=== PATIENT | female | born 1995 | race Caucasian/White ===

== ENCOUNTER 2017-01-23 02:52 | Inpatient (IN) ==
--- NOTE | 2017-01-23 04:13 | OB/GYN History & Physical ---
Date of Encounter: 01/23/17 Time of Encounter: 04:11 Assessment and Plan (1) 38 weeks gestation of Current visit: Yes Status: Acute 38 weeks 2 days continue FHR and toco - reactive NST category 1 with moderate variability, baseline 130s with 15x15 accels and no decels - external toco, contractions q3-5 minutes minimal cervical changes noted on recheck post 1hr, will have her ambulate and recheck History of Present Illness Chief complaint: Contractions, labor evaluation HPI: Ms. Davis is a 21 year old female 38 weeks 2 days presents for contractions. 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 Initially they were greater than 5 minutes apart and over the next hour became less than 5 minutes apart. Denies any vaginal bleeding, discharge, large gush of water or water breaking. Denies any fever, headache, visual changes, abdominal tenderness, or urinary complaints. She follows with OB Dr. Dee. Was seen and evaluated in the office yesterday for normal checkup. Cervix at that time 4 cm/90%. Fetus was positioned vertex. GPS negative, HBV nonreactive, Rubella immune, other serologies reviewed and are negative. Her blood type A positive. No complications to to date. She endorses good movement. Past Med Surg Social Fam HX - Past Medical History Medical history: no medical history Psychiatric history: no psych history - Past Surgical History Surgical History: no surgical history - Social History Smoking Status: Never smoker Smokeless Tobacco Status: No Alcohol use: none Drug use: none - Family History Mother Age: 50 Living Status: Still Living Hx Family Cardiac Disorders: No Hx Family Respiratory Disorders: No Hx Family Cancer: No Hx Family GI Disorders: No Hx Family Genitourinary Disorders: No Hx Family Endocrine Disorder: No Hx Family Musculoskeletal Disorders: No Hx Family Neuromuscular Disorders: No Hx Family Neurologic Disorders: No Hx Family HEENT Disorders: No Hx Family Autoimmune Disorders: No Hx Family Reproductive Disorders: No Hx Family Psychosocial Disorders: No Hx Family Medical Disorders: Yes (seizures in past) Obstetrical History - Pregnancies : 1 Para: 0 Term: 0 : 0 Ab's: 0 Livin Medications and Allergies Tablet 1 tab PO DAILY 01/23/17 [History] Allergies Penicillins Adverse Reaction (Verified 06/26/15 15:27) See Comments Review of System OB All systems PM: reviewed and no additional remarkable complaints except as stated Exam - Vital Signs Vital signs: Initial Vital Signs Temp Pulse Resp BP 97.9 F 98 14 137/70 01/23/17 02:59 01/23/17 02:59 01/23/17 02:59 01/23/17 02:59 - Constitutional Constitutional: well developed, well nourished, no acute distress, average body habitus - HEENT HEENT: EOMI, PERRL, Normocephaly, Mucus Membranes Moist - Neck Neck exam: full ROM, normal inspection, trachea midline - Lungs Respiratory exam: CTAB - Cardiovascular Cardiovascular exam: RRR, +S1, +S2 - Abdomen Abdomen: Present: bowel sounds normal, gravid, non tender - Extremities Extremities exam: full ROM, normal capillary refill, pedal edema (mild), radial pulses palpable and symetrical Deep Tendon Reflex Grade: 2+ Normal - Cervix Dilation: 5 (per RN) Effacement: 90 (per RN) - Uterus Uterus exam: Present: normal size, normal contour. Absent: tender Results All other labs normal. - VTE Reasons for not Prescribing Prophylaxis: Treatment not Indicated - Low risk for VTE
[2017-01-23 07:26] LABS: Bilirubin,Urine Negative (Negative); Blood,Urine Negative (Negative); Clarity,Urine Cloudy (Clear); Color,Urine Yellow (Yellow); Glucose,Urine (UA) Normal (Normal); Ketones,Urine Negative (Negative); Leukocyte Esterase,Urine Trace (Negative); Nitrite,Urine Negative (Negative); Protein,Urine Negative (Neg-Trace); Specific Gravity,Urine 1.017 (1.010-1.025); Urobilinogen,Urine Normal (Normal)
[2017-01-23 07:28] LABS: Hyaline Casts,Urine None Seen per lpf (None-Few); RBC,Urine 0-3 per hpf (0-3); WBC,Urine 0-3 per hpf (0-3)
[2017-01-23 07:43] LABS: Squamous Epithelial Cell,Urine Few per lpf (None-Few)
[2017-01-23 07:45] LABS: Bacteria,Urine Moderate per hpf (None-Few)
[2017-01-23] MEDS ORDERED: Famotidine 20 MG/2 ML VIAL IVP PRN (08:11)
[2017-01-23] MEDS ORDERED: Naloxone 0.4 MG/ML INJ IVP PRN (08:11)
[2017-01-23] MEDS ORDERED: Metoclopramide 10 MG/2 ML VIAL IVP PRN (08:11)
[2017-01-23] MEDS ORDERED: Ringers Solution, Lactated 1,000 ML IVC SCH (08:15)
[2017-01-23] MEDS ORDERED: EPHEDrine 50 MG/ML VIAL IVP PRN (08:29)
[2017-01-23] MEDS ORDERED: Ringers Solution, Lactated 500 ML IVC ONE (08:29)
[2017-01-23] MEDS ORDERED: Epidural Premix (fent/bupiv) 110 ML EP SCH (08:30)
--- NOTE | 2017-01-23 08:46 | OB/GYN Progress Note ---
Date of Encounter: 01/23/17 Time of Encounter: 08:44 Subjective - Subjective Interval history: Patient complains of 7 out of 10 pain. Contractions continued every 2-4 minutes. Cervix is now 5-6/90-1 membranes bulging . We will admit for labor management. Objective - Vital Signs Vital Signs: Vital Signs Temp Pulse Resp BP 01/23/17 02:59 97.9 F 98 14 137/70 Intake and Output 01/22/17 01/23/17 01/23/17 23:59 07:59 15:59 Other: Weight 88 kg Patient Weight 01/23/17 23:59 Weight 88 kg - Exam FHR: category 1 Auscultation: bilateral: normal Abdomen: Present: soft, gravid Cervical dilation: 5-6 Cervix effacement: 90 station: -1/ membranes bulging - Labs Labs: Abnormal lab results Urine Clarity Cloudy (Clear) A 01/23/17 07:15 Ur Leukocyte Esterase Trace (Negative) H 01/23/17 07:15 Urine Bacteria Moderate per hpf (None-Few) H 01/23/17 07:15
[2017-01-23 09:40] LABS: Basophils % 0.2 %; Hematocrit 30.9 % (35.3-44.9); Hemoglobin 10.2 g/dL (11.5-15.4); Immature Granulocytes % 0.3 % (0-4); Lymphocytes # 1.3 K/mcL (0.6-4.6); Lymphocytes % 11.3 %; Mean Corpuscular Volume 87.8 fL (83.0-100.0); Mean Platelet Volume 10.5 fL (9.4-12.4); Monocytes # 0.7 K/mcL (0.0-1.3); Monocytes % 5.9 %; Neutrophils # 9.7 K/mcL (1.6-8.9); Platelet Count 211 K/mcL (140-400); Red Blood Count 3.52 M/mcL (3.82-4.97); Red Cell Distribution Width 13.6 % (11.5-14.5); Segmented Neutrophils % 82.3 %
--- NOTE | 2017-01-23 13:12 | OB Labor Progress Note ---
Date of Encounter: 01/23/17 Time of Encounter: 13:12 Labor Progress Note - Subjective Subjective: Pt reports moderate discomfort with contractions at this time. - Cervix Cervix: 6/90/-1 - Heart Tones Heart Tones: Category I - [place]: 3-6 minutes - Interventions Interventions: AROM for moderate amount clear fluid. - Plan Plan: Continue to monitor. Epidural when requested. Anticipate .
[2017-01-23] MEDS ORDERED: Epidural Premix (fent/bupiv) 110 ML EP ONE (13:24)
--- NOTE | 2017-01-23 14:03 | Anesthesia Evaluation PreOp ---
Date of Encounter: 01/23/17 Time of Encounter: 14:02 - Past History Planned Operation: IBAN Cardiac History: Denies any Significant Hx Pulmonary History: Denies Any Significant HX TELEHEALTH CASE MANAGER History: Denies Any Significant HX Other Medical History: Denies Any Significant HX Anesthesia History: No Prior Anesthetic Complications : Yes Alcohol Use: none Drug use: none Medications and Allergies Tablet 1 tab PO DAILY 01/23/17 [History] Allergies Penicillins Adverse Reaction (Verified 06/26/15 15:27) See Comments - Meds/Allergy Pre-op Review Medications Reviewed: Yes Allergies Reviewed: Yes Beta Blockers on Current Med List: No Anesthesia Results - Labs 01/23/17 09:18 Anesthesia Exam Height: 5'2" Weight: 194# NPO (# of Hours): 4 Pain Scale: 9 Pain Scale Used: Numeric (1 - 10) - HEENT Pupil (Motor): Pupils equal Mallampati: II Teeth: Normal Oral Opening: Greater than 3 - TELEHEALTH CASE MANAGER LOC: Oriented TELEHEALTH CASE MANAGER Motor: Normal RUE, Normal LUE, Normal RLE, Normal LLE, Normal Face TELEHEALTH CASE MANAGER Sensory: Normal: RUE, LUE, RLE, LLE, Face - Cardiac Rhythm: Regular Murmur: None JVD: No Carotid Bruit: No - Pulmonary Breath Sounds: bilateral Clear Respiratory Effort: Symmetrical Anesthesia Assess/Plan ASA Score: 2 Modified [facility] Scale for Level of Consciousness: Cooperative, oriented, and tranquil Anesthetic Plan: General (plan b), Regional (plan a) Autologous Blood: Yes Monitoring Plan: Standard Monitors
--- NOTE | 2017-01-23 14:06 | Anesthesia Procedures ---
Date of Encounter: 01/23/17 Time of Encounter: 14:03 Procedures: Anesthesia - Epidural/Spinal Patient ID/Chart reviewed: Yes Patient examined: Yes OB Eval: Gestational age: 38.2 OB Eval: : 1 OB Eval: Hx Para: 0 OB Eval: Dilated at (cm): 6 OB Eval: Contractions: Non-stressed pattern Consent Obtained: Yes Supplemental Oxygen: None/Room Air Site Prep: Aseptic Technique, Sterile prep and drape, Povidone-Iodine 1% Patient position: upright Local Anesthetic: Lidocaine 1% Amount of Local Anesthetic used: 3 Touhy Needle Gauge: 18 Touhy Needle Depth (cm): 7 Catheter Depth at Skin (cm): 15 Test Dose (1.5% Lido + Epi): Volume given (mls): 5 Test Dose Result: Negative Loading Dose: Other: 4ml of epidural pharm bag premix solution Loading Dose Administered: Thru Catheter Infusion Med: 0.125% Bupivacaine w/ 2 mcg/ml Fentanyl Infusion Rate (mls/hr): 12 ([id number] pcea) Catheter Secured in Place: Tegaderm, Tape Interspace Used: L3-L4 Loss of Resistance (THELMA): Yes Blood: No CSF: No Paresthesia: No Procedure: pt tolerated procedure well. no complications. vss. fhr stable. 142/67 hr 97 test 138/72 hr 91 bolus 135/71 hr 113 pump start 127/60 hr 115
--- NOTE | 2017-01-23 15:33 | OB Labor Progress Note ---
Date of Encounter: 01/23/17 Time of Encounter: 15:30 Labor Progress Note - Subjective Subjective: Pt comfortable with epidural. - Cervix Cervix: 6/100/0 - Heart Tones Heart Tones: Category I - [place]: 2-6 minutes - Plan Plan: Continue to monitor. Augment with pitocin to make contractions more regular. Anticipate .
[2017-01-23] MEDS ORDERED: Oxytocin 20 units/ LR 1000 mL 20 UNIT/1,000 ML BAG IVC SCH ×2 (15:45→22:35)
--- NOTE | 2017-01-23 18:09 | OB Labor Progress Note ---
Date of Encounter: 01/23/17 Time of Encounter: 18:06 Labor Progress Note - Subjective Subjective: Pt reporting some rectal pressure. - Cervix Cervix: 9/100/1 - Heart Tones Heart Tones: Category I - [place]: 1.5-2.5 minutes - Interventions Interventions: Pt positioned on peanut ball - Plan Plan: Continue to monitor. Anticipate .
[2017-01-23] MEDS ORDERED: Benzocaine/Menthol 56 GM AEROSOL SPRAY TP PRN (22:14)
--- NOTE | 2017-01-23 22:20 | OB/GYN Procedure Note ---
Delivery - Delivery Date: 01/23/17 Provider: Nayeli Lira Intrapartum events: none Delivery induction: none Delivery augmentation: rupture of membranes, pitocin Delivery monitor: external FHT, internal uterine Anesthesia: epidural Estimated Blood Loss: 400 - Infant (s) A Infant Delivery Date: 01/23/17 Infant Delivery Time: 21:27 Presentation: vertex Position: CELSA Route of delivery: Gender: Female Viability: Viable Pounds: 7 Ounces: 11 Weight Gram: 3490 kg at 1 minute: 8 at 5 mins: 9 Shoulder Dystocia: not encountered Specimens collected: venous cord gases, arterial cord gases Placenta: spontaneous Cord: 3 umbilical vessels - Repair Episiotomy: none Laceration Description: Perineal - 1st Degree - Complications Delivery complications: uterine atony Delivery comments: Pt progressed well to for viable female weighing 7lbs 11oz with apgars 8 at one minute and 9 at five minutes. The cord was clamped and cut once pulsations ceased. The placenta delivered spontaneous and intact. Uterine atony noted following delivery of placenta and was managed with bimanual compression until good uterine tone was noted with pitocin infusing. A first degree perineal laceration was repaired using 3-0 Vicryl. EBL 400. developed some grunting respirations at 5 minutes of age and was taken to nursery for oxygen. Mother stable in DR and will be observed 2 hours before being taken to floor. - Disposition Mom disposition: stable in LDR disposition: taken to nursery
[2017-01-23] MEDS ORDERED: Acetaminophen 325 MG TABLET PO PRN (22:35)
[2017-01-23] MEDS ORDERED: Measles/Mumps/Rubella Vacc 0.5 ML VIAL SQ PRN (22:35)
[2017-01-23] MEDS: Ibuprofen 600 MG TABLET PO PRN (22:42)
[2017-01-24] MEDS: Prenatal Vit/FA 1 EACH TABLET PO SCH (10:11)
--- NOTE | 2017-01-24 10:30 | OB/GYN Progress Note ---
Date of Encounter: 01/24/17 Time of Encounter: 10:28 - Assessment and Plan (1) Vaginal delivery Current Visit: Yes Status: Acute Stable PP day 1, continue current management plan. Anticpate discharge tomorrow. Subjective - Subjective Interval history: Pt states feel well. Pain well managed on po pain medication. voiding without difficulty. Bottlefeeding. Patient reports: appetite normal, voiding normally, pain well controlled, ambulating normally Objective - Latest Vital Signs Latest vital signs: Vital Signs Temp Pulse Pulse Resp BP 01/24/17 07:30 98.1 F 80 16 130/80 01/24/17 02:53 98.2 F 88 88 14 117/66 01/24/17 01:50 98.2 F 88 88 14 117/66 01/24/17 00:45 98.4 F 101 101 14 109/70 Intake and Output 01/23/17 01/24/17 01/24/17 23:59 07:59 15:59 Intake Total 240 / 240 Output Total 700 / 700 Balance -700 / -700 240 / 240 Intake: Oral 240 / 240 Output: Urine 700 / 700 Other: Meal Breakfast Percent of Meal Consumed 90% Weight 84.2 kg Patient Weight 01/24/17 23:59 Weight 84.2 kg - Exam Lungs: bilateral: normal Extremities: Present: normal Abdomen: Present: normal appearance, soft Uterus: Present: normal Uterus Position: Midline
[2017-01-24] MEDS: Ibuprofen 600 MG TABLET PO PRN (15:36)
[2017-01-25] MEDS: Ibuprofen 600 MG TABLET PO PRN ×2 (03:42→09:27)
--- NOTE | 2017-01-25 07:35 | Discharge Summary ---
Date of Encounter: 01/25/17 Time of Encounter: 07:30 - Discharge Diagnosis (1) Vaginal delivery Priority: Primary Status: Acute Comments: Patient doing s/p vaginal delivery Denies pain States lochia is light States positive flatus; had a bm this am without difficulty and denies difficulty urinating Formula feeding. Discharge home today with baby - Discharge Medications Prescriptions: Ibuprofen [Motrin] 600 mg PO Q6HR PRN #60 tablet PRN Reason: Cramping Ferrous Sulfate 325 mg PO DAILY #60 tablet Home Medications: Tablet 1 tab PO DAILY 01/23/17 [History] Docusate [Colace] 100 mg PO BID capsule 01/25/17 [Rx] Ferrous Sulfate 325 mg PO DAILY #60 tablet 01/25/17 [Rx] Ibuprofen [Motrin] 600 mg PO Q6HR PRN #60 tablet 01/25/17 [Rx] Allergies/Adverse Reactions: Allergies Penicillins Adverse Reaction (Verified 06/26/15 15:27) See Comments Data Procedures and tests throughout hospitalization: Laboratory Tests 01/23/17 01/23/17 07:15 09:18 WBC 11.8 H RBC 3.52 L Hgb 10.2 L Hct 30.9 L MCV 87.8 MCH 29.0 MCHC 33.0 RDW 13.6 Plt Count 211 MPV 10.5 Immature Gran % 0.3 Seg Neutrophils % 82.3 Lymphocytes % 11.3 Monocytes % 5.9 Eosinophils % 0.0 Basophils % 0.2 Neutrophils # 9.7 H Lymphocytes # 1.3 Monocytes # 0.7 Eosinophils # 0.0 Basophils # 0.0 Urine Color Yellow Urine Clarity Cloudy A Urine pH 6.0 Ur Specific [place] 1.017 Urine Protein Negative Urine Glucose (UA) Normal Urine Ketones Negative Urine Blood Negative Urine Nitrite Negative Urine Bilirubin Negative Urine Urobilinogen Normal Ur Leukocyte Esterase Trace H Urine Microscopic RBC 0-3 Urine Microscopic WBC 0-3 Ur Squamous Epith Cells Few Urine Bacteria Moderate H Hyaline Casts None Seen Urine Yeast Test Not Performed Date of admission: 01/23/17 02:52 Primary care physician: Jacob Wray, Discharging clinician: Magdalena Sanchez - Patient Status Disposition: Home, Self-Care Condition: Good Functional capacity at discharge: independent ambulation Overall status at discharge: patient is back to baseline - Discharge Instructions Follow Up With: Jacob Wray DO [Primary Care Provider] - Rosa Dee DO [Partnered Physician] - (February 24, 2017 @ 1:30 pm) - Diet and Activity Activity: increase activity as tolerated Diet: regular diet Hospital Course Reason for admission: active labor, IUP at term Delivery: Episiotomy: none Laceration: 1st degree Other procedures: none complications: none Discharge diagnosis: IUP at term delivered baby: female Time Attestation: Total time spent providing and/or coordinating discharge services: Time Spent: Less than 30 minutes Exam - Constitutional Vitals: Temp Pulse Resp BP Pulse Ox 98.4 F 86 18 117/72 98 01/24/17 20:48 01/24/17 20:48 01/24/17 20:48 01/24/17 20:48 01/24/17 20:48 General appearance IM: cooperative, A&O X 3, pleasant - Respiratory Respiratory exam: Present: CTAB - Cardiovascular Cardiovascular exam IM: Present: RRR, +S1, +S2 - GI/Abdominal GI/Abdominal exam IM: normal bowel sounds, soft - Rectal Rectal exam: deferred - Uterine Tone: Firm Uterus Position: 1 Finger Below Umbilicus, Midline - Extremities Exam Extremities exam IM: Present: normal capillary refill, pedal edema (1+), radial pulses palpable and symetrical - Neurological Exam Neurological exam: alert, oriented X3, reflexes normal, no focal deficits
[2017-01-25] MEDS: Prenatal Vit/FA 1 EACH TABLET PO SCH (07:51)
[2017-01-25 08:19] VITALS: BP 119/72
== END 2017-01-25 11:27 | disposition home or self-care (01) | DRG 775 ==
LOC: 1NENULAB → OBSVTOIN 02:52 → 1NENUOBS 01-24 01:28
PROVIDERS: ADMIT Obstetrics & Gynecology; ATTEND Obstetrics & Gynecology

== ENCOUNTER 2017-01-27 22:27 | Observation (INO) ==
[2017-01-27 23:14] LABS: Basophils % 0.2 %; Eosinophils # 0.1 K/mcL (0.0-0.6); Hematocrit 24.6 % (35.3-44.9); Immature Granulocytes % 1.7 % (0-4); Lymphocytes # 1.3 K/mcL (0.6-4.6); Lymphocytes % 9.9 %; Mean Corpuscular HGB Conc 32.1 g/dL (31.6-35.5); Mean Corpuscular Hemoglobin 29.6 pg (28.0-33.3); Mean Corpuscular Volume 92.1 fL (83.0-100.0); Monocytes # 0.6 K/mcL (0.0-1.3); Monocytes % 5.1 %; Neutrophils # 10.4 K/mcL (1.6-8.9); Nucleated Red Blood Cells 0.4 /100 WBC (0); Platelet Count 251 K/mcL (140-400); Red Blood Count 2.67 M/mcL (3.82-4.97); Red Cell Distribution Width 14.5 % (11.5-14.5); Segmented Neutrophils % 82.1 %
[2017-01-27 23:21] LABS: INR 1.1; Prothrombin Time 11.4 Seconds (9.4-12.1)
[2017-01-27 23:24] LABS: Activated Partial Thrombo Time 23.9 Seconds (26.0-36.0)
[2017-01-27 23:25] LABS: Hemoglobin 7.9 g/dL (11.5-15.4)
[2017-01-27 23:28] LABS: BUN/Creatinine Ratio 20 (6-26); Blood Urea Nitrogen 14 mg/dL (7-20); Calcium 8.7 mg/dL (8.6-10.8); Carbon Dioxide 22 mEq/L (19-29); Chloride 109 mEq/L (98-109); Glucose 89 mg/dL (70-99); Osmolality,Calculated 288 (280-300); Potassium 3.7 mEq/L (3.5-4.5); Sodium 139 mEq/L (136-145); eGFR For African Americans > 60 (> 60); eGFR For Non-African Americans > 60 (> 60)
--- NOTE | 2017-01-28 00:46 | Emergency Department Note ---
Disposition Clinical Impression: Elevated blood pressure reading Pneumonia Qualifiers: Pneumonia type: due to unspecified organism Laterality: unspecified laterality Lung location: unspecified part of lung Qualified Code(s): J18.9 - Pneumonia, unspecified organism Chest pain Qualifiers: Chest pain type: unspecified Qualified Code(s): R07.9 - Chest pain, unspecified Disposition: Admitted As Inpatient Condition: Fair General Adult HPI - General Chief complaint: ED Chest Pain Stated complaint: CASI,Cp Time Seen by Provider: 01/28/17 00:32 Source: patient Mode of arrival: ambulatory Limitations: no limitations Nursing Notes Reviewed: Yes Vital Signs Reviewed: Yes - History of Present Illness HPI Narrative: 21-year-old female presents for evaluation for chest pain 4 days from a spontaneous vaginal delivery. Patient denies any, occasions with delivery. Patient denies any, dictation term . Patient has no history of hypertension or diabetes. Patient has no seizure disorder. Patient states that her chest pain started 2 days ago. Notes to be worse with exertion. Patient's pain is in the mid upper chest without radiation. Denies history of prior pain. Reports short of breath related the pain. Patient is getting formula feeding. No headache. No nausea or vomiting. No blurry vision or change in vision. No history of seizures. Pain Scale: 6 - Related Data Home Medications Medication Instructions Recorded Confirmed Tablet 1 tab PO DAILY 01/23/17 01/23/17 Previous Rx's Medication Instructions Recorded Docusate [Colace] 100 mg PO BID capsule 01/25/17 Ferrous Sulfate 325 mg PO DAILY #60 tablet 01/25/17 Ibuprofen [Motrin] 600 mg PO Q6HR PRN #60 tablet 01/25/17 Allergies Allergy/AdvReac Type Severity Reaction Status Date / Time Penicillins AdvReac See Verified 06/26/15 15:27 Comments All systems ED: reviewed and negative except as stated. Constitutional: Reports: as per HPI. Denies: fever Eyes: Reports: as per HPI ENT ED: Reports: as per HPI Cardiovascular: Reports: as per HPI, chest pain Respiratory: Reports: as per HPI, dyspnea Gastrointestinal: Reports: as per HPI. Denies: abdominal pain, nausea, vomiting Genitourinary: Reports: as per HPI Musculoskeletal: Reports: as per HPI Integumentary: Reports: as per HPI Neurological: Reports: as per HPI. Denies: headache, weakness, numbness Psychiatric: Reports: as per HPI Endocrine: Reports: as per HPI Past Medical History - Past Medical History Medical history: Reports: no medical history Surgical history: Reports: no surgical history Psychiatric history: Reports: no psych history LUNCHROOM SUPERVISOR history: Reports: no LUNCHROOM SUPERVISOR history - Social History Smoking Status: Never smoker Smokeless Tobacco Status: No Alcohol use: Reports: none Drug use: Reports: none Physical Exam - General Limitations: no limitations General appearance: alert, in no apparent distress - Head Head exam: atraumatic, normocephalic, normal inspection - Eye Eye exam: Present: normal appearance, PERRL, EOMI - ENT ENT exam: normal exam, normal oropharynx, mucous membranes moist - Neck Neck exam: Present: normal inspection, trachea midline - Chest Chest inspection: Present: normal inspection, symmetric chest wall rise - Respiratory Respiratory exam: Present: normal lung sounds bilaterally. Absent: respiratory distress - Cardiovascular Cardiovascular exam: Present: regular rate, normal rhythm - Abdominal Exam Abdominal exam: Present: soft, Non-Tender - Extremities Exam Extremities exam: Present: normal inspection, full ROM, pedal edema (2+). Absent: tenderness - Expanded Lower Extremity Exam Neurovascular/Tendon exam: Present: normal capillary refill - Back Exam Back exam: Present: normal inspection. Absent: CVA tenderness (R), CVA tenderness (L) - Neurological Exam Neurological exam: Present: alert, oriented X3 - Expanded Neurological Exam Patient oriented to: Present: person, place, time Speech: Present: fluid speech Cranial nerves: EOM function (II, III, IV, ): Normal, facial sensation (V): Normal, facial palsy (VII): Normal, spinal accessory function (XI): Normal, tongue deviation (XII): Normal Motor strength - LUE: 5/5 Motor strength - RUE: 5/5 Motor strength - LLE: 5/5 Motor strength - RLE: 5/5 DTR: patellar (L): 2+, patellar (R): 2+ - Skin Skin exam: Present: warm, dry, intact, normal color, rash (faint erythematous rash over the upper chest and back) Course Course Narrative: Patient seen and examined. The patient's a 21-year-old female who is day for with chief complaint of chest pain. Patient has noted to be hypertensive at triage which slightly reduction in her blood pressure during her stay. Discussed this with the on-call business services director who recommended that if her labs are unremarkable in her systolic blood pressures less than 160 she can follow-up in the office. There are concerns for pulmonary embolism, cardiomyopathy, as part of her chest pain. Patient is getting basic lab work, EKG, urine and reevaluation. - Reevaluation(s) Reevaluation #1: Patient seen and examined. Patient's resting comfortably. Patient does have multifocal pneumonia as evidenced by a CT with a parapneumonic effusion. Discussed with the patient will need to be admitted for IV antibiotics and monitoring. She is agreeable to plan of care. Time: 02:17 - Consultations Consultation #1: Spoke with Dr. Feliz who recommends that if the patient's SBP <160 with unremarkable labs, the patient may follow up in the office for re-evaluation. Time: 00:57 Vital Signs Temperature 98.7 F 01/27/17 22:28 Pulse Rate 94 01/27/17 22:28 Respiratory Rate 18 01/27/17 22:28 Blood Pressure 161/93 01/27/17 22:28 O2 Sat by Pulse Oximetry 98 01/27/17 22:28 Temperature 98.7 F 01/28/17 03:30 Pulse Rate 88 01/28/17 03:30 Respiratory Rate 16 01/28/17 03:30 Blood Pressure 129/78 01/28/17 03:30 O2 Sat by Pulse Oximetry 94 01/28/17 03:30 Oxygen Delivery Oxygen Delivery Room Air Medical Decision Making - MDM Narrative Medical decision making narrative: 21-year-old female present for evaluation of dyspnea as well as chest pain. Dyspnea started 2 days ago associated with the chest pain. There is to be worse with exertion. No history of prior. Patient is 4 days from a unremarkable spontaneous vaginal delivery. Patient states that she has also been having a slight productive cough. No notable fevers. No nausea or vomiting. No belly pain. At triage the patient's blood pressure was noted be elevated. Patient also had bilateral pitting edema. Concerns for preeclampsia initially and spoke with the on-call LUNCHROOM SUPERVISOR who recommended that as long as the blood pressure systolic was less than 160 the patient would be able to follow- up in clinic for reevaluation if the lab work was unremarkable. The patient had a CTA of the chest performed which shows multifocal pneumonia with a parapneumonic effusion likely etiology of the patient's dyspnea and chest pain. Also concern at this point for peripartum cardiomyopathy. This information was discussed with the patient at bedside. Recommend IV antibiotics admission and likely formal cardiac echo. Patient is agreeable to plan of care. - Lab Data Lab results reviewed: Yes I reviewed the patient's lab results. Result diagrams: 01/27/17 23:07 01/27/17 23:07 Lab Results 01/27/17 01/27/17 01/27/17 Range/Units 23:07 23:07 23:07 WBC 12.7 H (4.3-11.1) K/mcL RBC 2.67 L (3.82-4.97) M/mcL Hgb 7.9 L D (11.5-15.4) g/dL Hct 24.6 L (35.3-44.9) % MCV 92.1 (83.0-100.0) fL MCH 29.6 (28.0-33.3) pg MCHC 32.1 (31.6-35.5) g/dL RDW 14.5 (11.5-14.5) % Plt Count 251 (140-400) K/mcL MPV 10.0 (9.4-12.4) fL Immature Gran % 1.7 (0-4) % Seg Neutrophils % 82.1 % Lymphocytes % 9.9 % Monocytes % 5.1 % Eosinophils % 1.0 % Basophils % 0.2 % Neutrophils # 10.4 H (1.6-8.9) K/mcL Lymphocytes # 1.3 (0.6-4.6) K/mcL Monocytes # 0.6 (0.0-1.3) K/mcL Eosinophils # 0.1 (0.0-0.6) K/mcL Basophils # 0.0 (0.0-0.2) K/mcL Nucleated RBCs/100 WBC 0.4 H (0) /100 WBC PT 11.4 (9.4-12.1) Seconds INR 1.1 APTT 23.9 L (26.0-36.0) Seconds Sodium 139 (136-145) mEq/L Potassium 3.7 (3.5-4.5) mEq/L Chloride 109 (98-109) mEq/L Carbon Dioxide 22 (19-29) mEq/L BUN 14 (7-20) mg/dL Creatinine 0.69 (0.57-1.11) mg/dL Est GFR ( Amer) > 60 (> 60) Est GFR (Non-Af Amer) > 60 (> 60) BUN/Creatinine Ratio 20 (6-26) Glucose 89 (70-99) mg/dL Calculated Osmolality 288 (280-300) Uric Acid (2.6-6.0) mg/dL Calcium 8.7 (8.6-10.8) mg/dL Magnesium (1.6-2.6) mg/dL Total Bilirubin (0.2-1.2) mg/dL Direct Bilirubin (0.0-0.5) mg/dL Indirect Bilirubin (0.0-1.2) mg/dL AST (5-34) Units/L ALT (0-55) Units/L Alkaline Phosphatase (38-126) Units/L Lactate Dehydrogenase (159-327) Units/L Troponin I (0-0.03) ng/mL B-Natriuretic Peptide (0-100) pg/mL Serum Total Protein (6.0-8.3) g/dL Albumin (3.5-5.0) g/dL Globulin (2.4-3.5) g/dL Albumin/Globulin Ratio (1.1-2.2) Urine Color (Yellow) Urine Clarity (Clear) Urine pH (5.0-8.0) pH Units Ur Specific [place] (1.010-1.025) Urine Protein (Neg-Trace) mg/dL Urine Glucose (UA) (Normal) mg/dL Urine Ketones (Negative) mg/dL Urine Blood (Negative) Urine Nitrite (Negative) Urine Bilirubin (Negative) Urine Urobilinogen (Normal) mg/dL Ur Leukocyte Esterase (Negative) Urine Microscopic RBC (0-3) per hpf Urine Microscopic WBC (0-3) per hpf Ur Squamous Epith Cells (None-Few) per lpf Urine Bacteria (None-Few) per hpf Hyaline Casts (None-Few) per lpf Ur Culture Indicated? (NO) 01/27/17 01/27/17 01/28/17 Range/Units 23:07 23:07 01:10 WBC (4.3-11.1) K/mcL RBC (3.82-4.97) M/mcL Hgb (11.5-15.4) g/dL Hct (35.3-44.9) % MCV (83.0-100.0) fL MCH (28.0-33.3) pg MCHC (31.6-35.5) g/dL RDW (11.5-14.5) % Plt Count (140-400) K/mcL MPV (9.4-12.4) fL Immature Gran % (0-4) % Seg Neutrophils % % Lymphocytes % % Monocytes % % Eosinophils % % Basophils % % Neutrophils # (1.6-8.9) K/mcL Lymphocytes # (0.6-4.6) K/mcL Monocytes # (0.0-1.3) K/mcL Eosinophils # (0.0-0.6) K/mcL Basophils # (0.0-0.2) K/mcL Nucleated RBCs/100 WBC (0) /100 WBC PT (9.4-12.1) Seconds INR APTT (26.0-36.0) Seconds Sodium (136-145) mEq/L Potassium (3.5-4.5) mEq/L Chloride (98-109) mEq/L Carbon Dioxide (19-29) mEq/L BUN (7-20) mg/dL Creatinine (0.57-1.11) mg/dL Est GFR ( Amer) (> 60) Est GFR (Non-Af Amer) (> 60) BUN/Creatinine Ratio (6-26) Glucose (70-99) mg/dL Calculated Osmolality (280-300) Uric Acid 5.3 (2.6-6.0) mg/dL Calcium (8.6-10.8) mg/dL Magnesium 1.8 (1.6-2.6) mg/dL Total Bilirubin 0.4 (0.2-1.2) mg/dL Direct Bilirubin 0.1 (0.0-0.5) mg/dL Indirect Bilirubin 0.3 (0.0-1.2) mg/dL AST 44 H (5-34) Units/L ALT 45 (0-55) Units/L Alkaline Phosphatase 178 H (38-126) Units/L Lactate Dehydrogenase 342 H (159-327) Units/L Troponin I 0.00 (0-0.03) ng/mL B-Natriuretic Peptide 156 H (0-100) pg/mL Serum Total Protein 6.0 (6.0-8.3) g/dL Albumin 2.5 L (3.5-5.0) g/dL Globulin 3.5 (2.4-3.5) g/dL Albumin/Globulin Ratio 0.7 L (1.1-2.2) Urine Color (Yellow) Urine Clarity (Clear) Urine pH (5.0-8.0) pH Units Ur Specific [place] (1.010-1.025) Urine Protein (Neg-Trace) mg/dL Urine Glucose (UA) (Normal) mg/dL Urine Ketones (Negative) mg/dL Urine Blood (Negative) Urine Nitrite (Negative) Urine Bilirubin (Negative) Urine Urobilinogen (Normal) mg/dL Ur Leukocyte Esterase (Negative) Urine Microscopic RBC (0-3) per hpf Urine Microscopic WBC (0-3) per hpf Ur Squamous Epith Cells (None-Few) per lpf Urine Bacteria (None-Few) per hpf Hyaline Casts (None-Few) per lpf Ur Culture Indicated? (NO) 01/28/17 Range/Units 02:26 WBC (4.3-11.1) K/mcL RBC (3.82-4.97) M/mcL Hgb (11.5-15.4) g/dL Hct (35.3-44.9) % MCV (83.0-100.0) fL MCH (28.0-33.3) pg MCHC (31.6-35.5) g/dL RDW (11.5-14.5) % Plt Count (140-400) K/mcL MPV (9.4-12.4) fL Immature Gran % (0-4) % Seg Neutrophils % % Lymphocytes % % Monocytes % % Eosinophils % % Basophils % % Neutrophils # (1.6-8.9) K/mcL Lymphocytes # (0.6-4.6) K/mcL Monocytes # (0.0-1.3) K/mcL Eosinophils # (0.0-0.6) K/mcL Basophils # (0.0-0.2) K/mcL Nucleated RBCs/100 WBC (0) /100 WBC PT (9.4-12.1) Seconds INR APTT (26.0-36.0) Seconds Sodium (136-145) mEq/L Potassium (3.5-4.5) mEq/L Chloride (98-109) mEq/L Carbon Dioxide (19-29) mEq/L BUN (7-20) mg/dL Creatinine (0.57-1.11) mg/dL Est GFR ( Amer) (> 60) Est GFR (Non-Af Amer) (> 60) BUN/Creatinine Ratio (6-26) Glucose (70-99) mg/dL Calculated Osmolality (280-300) Uric Acid (2.6-6.0) mg/dL Calcium (8.6-10.8) mg/dL Magnesium (1.6-2.6) mg/dL Total Bilirubin (0.2-1.2) mg/dL Direct Bilirubin (0.0-0.5) mg/dL Indirect Bilirubin (0.0-1.2) mg/dL AST (5-34) Units/L ALT (0-55) Units/L Alkaline Phosphatase (38-126) Units/L Lactate Dehydrogenase (159-327) Units/L Troponin I (0-0.03) ng/mL B-Natriuretic Peptide (0-100) pg/mL Serum Total Protein (6.0-8.3) g/dL Albumin (3.5-5.0) g/dL Globulin (2.4-3.5) g/dL Albumin/Globulin Ratio (1.1-2.2) Urine Color Yellow (Yellow) Urine Clarity Cloudy A (Clear) Urine pH 7.5 (5.0-8.0) pH Units Ur Specific [place] > 1.030 H (1.010-1.025) Urine Protein 30 H (Neg-Trace) mg/dL Urine Glucose (UA) Normal (Normal) mg/dL Urine Ketones Negative (Negative) mg/dL Urine Blood Large H (Negative) Urine Nitrite Negative (Negative) Urine Bilirubin Negative (Negative) Urine Urobilinogen Normal (Normal) mg/dL Ur Leukocyte Esterase Large H (Negative) Urine Microscopic RBC TNTC H (0-3) per hpf Urine Microscopic WBC TNTC H (0-3) per hpf Ur Squamous Epith Cells Few (None-Few) per lpf Urine Bacteria None Seen (None-Few) per hpf Hyaline Casts None Seen (None-Few) per lpf Ur Culture Indicated? YES A (NO) - Radiology Data Radiology results reviewed: Yes I reviewed the patient's radiology results. Chest X-Ray 01/27/17 22:30 IMPRESSION: Patchy and hazy bibasilar opacities, right greater than left. While these findings may in part reflect atelectasis/bronchovascular crowding, possible infectious infiltrates could also be considered in the correct clinical setting. D/ / Bunny Krause MD / Bunny Krause MD Interpreting Provider: Bunny Krause MD Chest CTA 01/28/17 01:01 IMPRESSION: No evidence of a pulmonary embolus. Bilateral patchy and somewhat nodular airspace disease most consistent with multifocal pneumonia. There are small bilateral parapneumonic pleural effusions with the left pleural fluid partially loculated in a subpulmonic position. D/ / Stone Prasad MD / Stone Prasad MD Interpreting Provider: Stone Prasad MD - EKG Data EKG #1 EKG attestation: Yes I reviewed and interpreted this EKG. EKG shows normal: sinus rhythm Rate: normal Rhythm: NSR [place]/QRS: normal T wave inversions noted in: v1 Interpretation: no acute changes, normal EKG Attestation Statement - Attestation Attestation: I, Ki Moran, examined this patient and my medical decision-making was reviewed with the [employer] P[employer]/PA/Advanced Practice Nurse/Resident Physician. I agree with the documented findings, disposition and treatment plan as described except to the extent set forth below. 21-year-old female presents with chest pain, shortness of breath, elevated blood pressure. Patient is 4 days . Patient is not breast-feeding. Patient had a vaginal without complication other than first-degree perineal tear which did not reveal significant repair. Initial blood pressures in the emergency department had greater than 160 systolic. After evaluation and observation emergency Department the BP did improve to 141 systolic. CTA of the chest was ordered to rule out PE due to patient's hypercoagulable state. CT shows multifocal pneumonia and patient will be admitted to the hospital after treatment with IV antibiotics of ceftriaxone and azithromycin. Patient does not qualify for healthcare associated pneumonia as she spent less than 48 hours in the hospital. Patient felt comfortable with the plan for admission to the hospital.
[2017-01-28] MEDS ORDERED: Ketorolac 15 MG/ML VIAL IVP ONE (01:10)
[2017-01-28 01:38] LABS: Albumin 2.5 g/dL (3.5-5.0); Albumin/Globulin Ratio 0.7 (1.1-2.2); Bilirubin,Direct 0.1 mg/dL (0.0-0.5); Bilirubin,Indirect 0.3 mg/dL (0.0-1.2); Bilirubin,Total 0.4 mg/dL (0.2-1.2); Globulin 3.5 g/dL (2.4-3.5); Magnesium 1.8 mg/dL (1.6-2.6); Uric Acid 5.3 mg/dL (2.6-6.0)
[2017-01-28] MEDS ORDERED: Azithromycin 500 MG in D5% in Water 250 ML IVPB ONE (02:16)
[2017-01-28 02:37] LABS: Bilirubin,Urine Negative (Negative); Blood,Urine Large (Negative); Clarity,Urine Cloudy (Clear); Color,Urine Yellow (Yellow); Glucose,Urine (UA) Normal (Normal); Ketones,Urine Negative (Negative); Leukocyte Esterase,Urine Large (Negative); Nitrite,Urine Negative (Negative); PH,Urine 7.5 pH Units (5.0-8.0); Protein,Urine 30 mg/dL (Neg-Trace); Specific Gravity,Urine > 1.030 (1.010-1.025); Urobilinogen,Urine Normal (Normal)
[2017-01-28 02:39] LABS: Bacteria,Urine None Seen per hpf (None-Few); Hyaline Casts,Urine None Seen per lpf (None-Few); RBC,Urine TNTC per hpf (0-3); Squamous Epithelial Cell,Urine Few per lpf (None-Few); WBC,Urine TNTC per hpf (0-3)
[2017-01-28] MEDS ORDERED: Levofloxacin 750 MG/150 ML 750 MG/150 ML BAG IVPB ONE (02:44)
[2017-01-28] MEDS ORDERED: Ondansetron 4 MG/2 ML VIAL IVP PRN (04:06)
[2017-01-28] MEDS ORDERED: Acetaminophen 325 MG TABLET PO PRN (04:06)
--- NOTE | 2017-01-28 04:06 | Internal Med History&Physical ---
<Da Harris - Last Filed: 01/28/17 04:44> Date of Encounter: 01/28/17 Time of Encounter: 03:00 Assessment and Plan (1) Pneumonia Current visit: Yes Status: Acute - CTA chest found no evidence of PE but multifocal pneumonia affecting bilateral lung bases. - Pending blood cultures. - Will obtain sputum culture with gram stain. - Also check respiratory infection panel and urine antigens for Legionella and S. pneumoniae. - Continue levofloxacin. - Closely monitor. Qualifiers: Pneumonia type: due to unspecified organism Laterality: bilateral Lung location: lower lobe of lung Qualified Code(s): J18.9 - Pneumonia, unspecified organism (2) Anemia Current visit: Yes Status: Acute - Hgb 7.9, which is a drop from 10.2 on 01/23. - Likely secondary to vaginal bleeding, which per patient it's improving. - May partially contribute to patient's current shortness of breath. - Continue iron supplement. - Continue to monitor. Qualifiers: Anemia type: unspecified type Qualified Code(s): D64.9 - Anemia, unspecified (3) Chest pain Current visit: Yes Status: Acute - Pleuritic chest pain on deep breath or cough. - Doubt cardiac cause given no significant ischemic change on EKG and negative troponin. - Pain control with prn Tylenol. Qualifiers: Chest pain type: chest pain on breathing Qualified Code(s): R07.1 - Chest pain on breathing (4) Status post vaginal delivery Current visit: Yes Status: Acute - Status post vaginal delivery on 01/23/17. - Patient reports decreasing vaginal bleeding. - Currently bottle feeding. (5) DVT prophylaxis Current visit: Yes Status: Acute - Calf pump for mechanical DVT prophylaxis. Internal Medicine - H&P: HPI Chief complaint: Shortness of breath and cough Admitted From: Emergency Dept Plans for Post Hospital Care: Home History of present illness: Ms. Davis is a 21 year old female without significant PMH who just had a vaginal delivery on 01/23/17. Patient presented to [facility] ED with complaints of worsening shortness of breath and cough starting 01/26 evening. Patient reports that shortness of breath is getting so bad that she can barely walk due to the exertional dyspnea. Patient reports occasional sputum production. Patient also has sternal chest pain aggravated by cough or deep breath. Patient denies fever , chills, nausea, vomiting, diarrhea, abdominal pain, dysuria, skin rash/ itchiness. Patient still sees blood in the urine and reports the vaginal bleeding is decreasing over time. Patient reports no known complication throughout . Patient is currently bottle-feeding her baby. Patient is full code. Past Med Surg Social Fam HX - Past Medical History Medical history: no medical history Psychiatric history: no psych history - Past Surgical History Surgical History: no surgical history, non-contributory - Social History Smoking Status: Never smoker Smokeless Tobacco Status: No Alcohol use: none Drug use: none - Family History Mother Living Status: Still Living Hx Family Cardiac Disorders: No Hx Family Respiratory Disorders: No Hx Family Cancer: No Hx Family GI Disorders: No Hx Family Endocrine Disorder: No Hx Family Neuromuscular Disorders: No Hx Family Neurologic Disorders: No Hx Family HEENT Disorders: No Hx Family Autoimmune Disorders: No Father Living Status: Still Living Hx Family Endocrine Disorder: Yes (DM2) Internal Medicine - H&P: Meds Tablet 1 tab PO DAILY 01/23/17 [History] Docusate [Colace] 100 mg PO BID capsule 01/25/17 [Rx] Ferrous Sulfate 325 mg PO DAILY #60 tablet 01/25/17 [Rx] Ibuprofen [Motrin] 600 mg PO Q6HR PRN #60 tablet 01/25/17 [Rx] Allergies Penicillins Adverse Reaction (Verified 06/26/15 15:27) See Comments All Systems PM: A 10-system review of systems was performed and is negative for pertinent findings except as documented above in the HPI. - Constitutional Constitutional: no anorexia, no chills, no fever(s) - EENT Eyes: no change in vision Ears: no decreased hearing Nose, mouth and throat: no dysphagia, no odynophagia - Cardiovascular Cardiovascular ROS IM: edema (BLE edema about the same as during .), palpitations, no diaphoresis, no lightheadedness, no syncope - Respiratory Respiratory: cough (With occasional clear sputum production.), dyspnea, pain on inspiration, pain with cough, no hemoptysis - Gastrointestinal Gastrointestinal: no abdominal pain, no diarrhea, no hematochezia, no melena, no nausea, no vomiting - Genitourinary Genitourinary: hematuria, no difficulty urinating, no dysuria - Musculoskeletal Musculoskeletal ROS IM: no arthralgias, no myalgias - Integumentary Integumentary IM: no pruritus, no rash - Neurological Neurological ROS: no focal weakness, no numbness, no tingling - Hematologic/Lymphatic Hematologic/Lymphatic: no easy bleeding, no easy bruising - Constitutional Vitals: Temp Pulse Resp BP Pulse Ox 98.7 F 88 16 129/78 94 01/28/17 03:30 01/28/17 03:30 01/28/17 03:30 01/28/17 03:30 01/28/17 03:30 General appearance: Present: cooperative, A&O X 3, no acute distress, answers questions appropriately - Head Head exam: Present: atraumatic, normocephalic - Eye Eye exam: Present: EOMI, PERRL, conjuntiva pink, sclera anicteric - Neck Neck exam general surgery: Present: supple, trachea midline. Absent: lymphadenopathy - Respiratory Respiratory exam: Present: CTAB. Absent: accessory muscle use, rales, rhonchi, wheezes - Cardiovascular Cardiovascular exam: Present: +S1, +S2, tachycardia. Absent: diastolic murmur, gallop, rubs, systolic murmur - GI/Abdominal GI/Abdominal exam: Present: normal bowel sounds, soft, no peritoneal signs. Absent: distended, tenderness - Extremities Exam Extremities exam: Present: warm, radial pulses palpable and symetrical. Absent : calf tenderness, cyanotic, pedal edema - Neurological Exam Neurological exam: Present: CN II-XII intact, oriented X3, no focal deficits. Absent: pronater drift, facial droop, speech deficit - Skin Skin exam: Present: dry, intact, warm Internal Med - H&P Results - Labs CBC & Chem 7: 01/27/17 23:07 01/27/17 23:07 Labs: Short CBC 01/27/17 Range/Units 23:07 WBC 12.7 H (4.3-11.1) K/mcL Hgb 7.9 L D (11.5-15.4) g/dL Hct 24.6 L (35.3-44.9) % Plt Count 251 (140-400) K/mcL Neutrophils # 10.4 H (1.6-8.9) K/mcL BMP 01/27/17 Range/Units 23:07 Sodium 139 (136-145) mEq/L Potassium 3.7 (3.5-4.5) mEq/L Chloride 109 (98-109) mEq/L Carbon Dioxide 22 (19-29) mEq/L BUN 14 (7-20) mg/dL Creatinine 0.69 (0.57-1.11) mg/dL Glucose 89 (70-99) mg/dL Calcium 8.7 (8.6-10.8) mg/dL Cardiac Enzymes 01/27/17 Range/Units 23:07 Troponin I 0.00 (0-0.03) ng/mL Liver Function 01/28/17 Range/Units 01:10 Total Bilirubin 0.4 (0.2-1.2) mg/dL Direct Bilirubin 0.1 (0.0-0.5) mg/dL AST 44 H (5-34) Units/L ALT 45 (0-55) Units/L Alkaline Phosphatase 178 H (38-126) Units/L Albumin 2.5 L (3.5-5.0) g/dL Urine 01/28/17 Range/Units 02:26 Urine Color Yellow (Yellow) Urine Clarity Cloudy A (Clear) Urine pH 7.5 (5.0-8.0) pH Units Ur Specific [place] > 1.030 H (1.010-1.025) Urine Protein 30 H (Neg-Trace) mg/dL Urine Glucose (UA) Normal (Normal) mg/dL - EKG Data -: EKG Interpreted by Myself EKG shows normal: sinus rhythm Rate: normal - EKG Data Prior EKG available for review: no EKG comments: 01/28/17 04:28 HR 88, DE 160, QRS 74, sinus rhythm, no significant ischemic change. - Impressions Impressions Chest X-Ray 01/27/17 22:30 IMPRESSION: Patchy and hazy bibasilar opacities, right greater than left. While these findings may in part reflect atelectasis/bronchovascular crowding, possible infectious infiltrates could also be considered in the correct clinical setting. D/ / Bunny Krause MD / Bunny Krause MD Interpreting Provider: Bunny Krause MD Chest CTA 01/28/17 01:01 IMPRESSION: No evidence of a pulmonary embolus. Bilateral patchy and somewhat nodular airspace disease most consistent with multifocal pneumonia. There are small bilateral parapneumonic pleural effusions with the left pleural fluid partially loculated in a subpulmonic position. D/ / Stone Prasad MD / Stone Prasad MD Interpreting Provider: Stone Prasad MD <DelphineRodo Sams - Last Filed: 01/28/17 06:28> Date of Encounter: 01/28/17 Internal Medicine - H&P: HPI History of present illness: Ms. Davis is a 21 year old female All Systems PM: A 10-system review of systems was performed and is negative for pertinent findings except as documented above in the HPI. - Constitutional Vitals: Temp Pulse Resp BP Pulse Ox 98.7 F 88 16 129/78 94 01/28/17 03:30 01/28/17 03:30 01/28/17 03:30 01/28/17 03:30 01/28/17 03:30 Internal Med - H&P Results - Labs CBC & Chem 7: 01/28/17 03:57 01/28/17 03:57 Labs: Short CBC 01/28/17 Range/Units 03:57 WBC 12.5 H (4.3-11.1) K/mcL Hgb 7.6 L (11.5-15.4) g/dL Hct 24.4 L (35.3-44.9) % Plt Count 250 (140-400) K/mcL Neutrophils # 10.2 H (1.6-8.9) K/mcL BMP 01/28/17 03:57 Sodium 138 Potassium 3.5 Chloride 108 Carbon Dioxide 21 BUN 13 Creatinine 0.69 Glucose 86 Calcium 8.6 - Attending Attestation I personally interviewed and examined this patient and my medical decision- making was reviewed with the Resident Physician. I agree with the documented findings, disposition and treatment plan as described.
[2017-01-28] MEDS ORDERED: Ipratropium/Albuterol Neb 3 ML IH PRN (04:10)
[2017-01-28 05:01] LABS: Basophils % 0.1 %; Eosinophils # 0.1 K/mcL (0.0-0.6); Hematocrit 24.4 % (35.3-44.9); Hemoglobin 7.6 g/dL (11.5-15.4); Immature Granulocytes % 1.3 % (0-4); Lymphocytes # 1.4 K/mcL (0.6-4.6); Lymphocytes % 11.5 %; Mean Corpuscular HGB Conc 31.1 g/dL (31.6-35.5); Mean Corpuscular Hemoglobin 28.8 pg (28.0-33.3); Mean Corpuscular Volume 92.4 fL (83.0-100.0); Mean Platelet Volume 10.8 fL (9.4-12.4); Monocytes # 0.6 K/mcL (0.0-1.3); Monocytes % 4.5 %; Neutrophils # 10.2 K/mcL (1.6-8.9); Nucleated Red Blood Cells 0.2 /100 WBC (0); Platelet Count 250 K/mcL (140-400); Red Blood Count 2.64 M/mcL (3.82-4.97); Red Cell Distribution Width 15.1 % (11.5-14.5); Segmented Neutrophils % 81.6 %
[2017-01-28 05:11] LABS: BUN/Creatinine Ratio 19 (6-26); Blood Urea Nitrogen 13 mg/dL (7-20); Calcium 8.6 mg/dL (8.6-10.8); Carbon Dioxide 21 mEq/L (19-29); Chloride 108 mEq/L (98-109); Glucose 86 mg/dL (70-99); Osmolality,Calculated 285 (280-300); Potassium 3.5 mEq/L (3.5-4.5); Sodium 138 mEq/L (136-145); eGFR For African Americans > 60 (> 60); eGFR For Non-African Americans > 60 (> 60)
[2017-01-28] MEDS ORDERED: *HR* Heparin 5,000 UNIT/ML VIAL SQ SCH ×2 (06:00→07:00)
[2017-01-28 07:44] VITALS: BP 139/83
--- NOTE | 2017-01-28 10:00 | Discharge Summary ---
<Elkin Vazquez - Last Filed: 01/28/17 09:57> Date of Encounter: 01/28/17 Time of Encounter: 09:57 - Discharge Diagnosis (1) Pneumonia Priority: Primary Status: Acute Comments: Patient presented with shortness of breath post vaginal delivery [address] demonstrated bilateral patchy and somewhat nodular airspace disease most consistent with multifocal pneumonia. There was also a small bilateral parapneumonic pleural effusion with a left fluid partially loculated in a subpulmonic position. - Patient is stable maintaining oxygen saturations greater than 94% on room air even with ambulation. - Received dose of ceftriaxone and azithromycin in the emergency department and 750 mg Levaquin IV once today. Plan: - Patient is stable for discharge home with close follow-up. - Patient to complete 5 more days of by mouth Levaquin - Provide albuterol inhaler for symptom management at the time of discharge. Qualifiers: Pneumonia type: due to unspecified organism Laterality: bilateral Lung location: lower lobe of lung Qualified Code(s): J18.9 - Pneumonia, unspecified organism (2) Anemia Priority: Secondary Status: Acute Comments: Patient's current hemoglobin is 7.6 status post vaginal delivery, previous hemoglobin levels were reviewed which demonstrates anemia likely secondary to increased volume secondary to . Patient's MCV is 92.4. - Patient has tachycardia with heart rate of 120s to 130s with ambulation likely secondary to blood loss anemia from vaginal delivery and acute medical process. - She is currently taking ferrous sulfate at home - Has line installer follow-up scheduled for February. Qualifiers: Anemia type: unspecified type Qualified Code(s): D64.9 - Anemia, unspecified - Discharge Medications Prescriptions: Albuterol Sulfate [Albuterol Inhaler] 2 puff IH Q4HR PRN #1 hfa.aer.ad PRN Reason: Shortness Of Breath Levofloxacin [Levaquin] 750 mg PO DAILY #5 tablet Home Medications: Vit#98/Ferrous Fum/FA [Kpn Tablet] 1 tab PO DAILY #0 [History] Docusate [Colace] 100 mg PO BID capsule 01/25/17 [Rx] Ferrous Sulfate 325 mg PO DAILY #60 tablet 01/25/17 [Rx] Ibuprofen [Motrin] 600 mg PO Q6HR PRN #60 tablet 01/25/17 [Rx] Albuterol Sulfate [Albuterol Inhaler] 2 puff IH Q4HR PRN #1 hfa.aer.ad 01/28/17 [Rx] Levofloxacin [Levaquin] 750 mg PO DAILY #5 tablet 01/28/17 [Rx] Allergies/Adverse Reactions: Allergies Penicillins Adverse Reaction (Verified 06/26/15 15:27) See Comments Date of admission: 01/28/17 02:55 Primary care physician: Jacob Wray, Discharging clinician: Elkin Vazquez Anticipated date of discharge: 01/28/17 - Patient Status Disposition: Home, Self-Care Condition: Fair Functional capacity at discharge: independent ambulation Overall status at discharge: patient is progressing back to baseline - Discharge Instructions Follow Up With: Jacob Wray DO [Primary Care Provider] - 02/04/17 2:00 pm Additional Instructions: Complete antibiotics as prescribed. Follow up with PCP in the next 3-5 days Do not breast feed while taking antibiotics as discussed and patient understood and agreed. - Diet and Activity Activity: increase activity as tolerated Diet: advance to your usual diet Interval History: Ms. Davis 21 yo F s/p vaginal delivery 5 days ago was admitted with SOB and suspected multifocal pneumonia, with CTA demonstrating bilateral patch and somewhat nodular airspace disease, where parapneumonic pleural effusions with left pleural fluid partially loculated subpulmonic position. Patient had an elevated WBC at 12.5 and also found to have a hemoglobin of 7.6 which is likely secondary to delivery. She is admitted to general medical floor after receiving 1 dose of azithromycin and ceftriaxone the emergency department. She received 1 dose of Levaquin IV. She was seen and evaluated patient bedside and deemed stable for discharge home with close follow-up with her primary care provider. She is provided with 5 days of by mouth Levaquin 750 mg daily. Also she is provided a prescription for an albuterol inhaler 2 puffs when necessary every 4 hours for shortness of breath. I discussed these antibiotics with the patient and she said she is not breast-feeding. I advised the patient to abstain from any breast-feeding while taking Levaquin for which the patient understood and agreed. She is going to follow-up with her line installer as scheduled and with her primary care provider. She was highly recommended to continue taking her ferrous sulfate and vitamin. Hospital course: Ms. Davis is a 21 year old female - Time Spent with Patient Total time spent providing and/or coordinating discharge services: - Constitutional Vitals: Temp Pulse Resp BP Pulse Ox 98.5 F 99 20 139/83 93 01/28/17 07:43 01/28/17 07:43 01/28/17 07:43 01/28/17 07:43 01/28/17 07:43 General appearance: Present: cooperative, A&O X 3, no acute distress, answers questions appropriately - Head Head exam: Present: atraumatic, normocephalic - Eye Eye exam: Present: PERRL, conjuntiva pink, sclera anicteric Pupils: Present: PERRL - ENT ENT exam: Present: mucous membranes moist - Neck Neck exam general surgery: Present: supple, trachea midline. Absent: lymphadenopathy - Respiratory Respiratory exam: Present: CTAB. Absent: accessory muscle use, rales, rhonchi, wheezes - Cardiovascular Cardiovascular exam: Present: RRR, +S1, +S2. Absent: diastolic murmur, gallop, rubs, systolic murmur - GI/Abdominal GI/Abdominal exam: Present: normal bowel sounds, soft, no peritoneal signs. Absent: distended, tenderness - Extremities Exam Extremities exam: Present: pedal edema (trace pedal edema), warm, radial pulses palpable and symetrical. Absent: calf tenderness, cyanotic - Neurological Exam Neurological exam: Present: alert, oriented X3, no focal deficits. Absent: pronater drift, facial droop, speech deficit - Psychiatric Psychiatric exam: Present: normal affect, normal mood <Eron Wallis - Last Filed: 01/28/17 18:23> Date of Encounter: 01/28/17 Date of admission: 01/28/17 02:55 Primary care physician: Jacob Wray, Hospital course: Ms. Davis is a 21 year old female - Time Spent with Patient Total time spent providing and/or coordinating discharge services: - Constitutional Vitals: Temp Pulse Resp BP Pulse Ox 98.5 F 99 20 139/83 93 01/28/17 07:43 01/28/17 07:43 01/28/17 07:43 01/28/17 07:43 01/28/17 07:43 - Attending Attestation I examined this patient and my medical decision-making was reviewed with the Resident Physician, Dr Vazquez. I agree with the documented findings, disposition and treatment plan as described except to the extent set forth below. Patient was admitted yesterday for treatment of pneumonia and respiratory insufficiency. She appears to be in distress, speaking full sentences, alert oriented 3. Lungs are clear bilaterally. Reviewed her CT of the chest which shows bilateral pleural effusions right greater than left and patchy infiltrates bilaterally. Plan the patient has responded clinically to antibiotics therapy. We will switch her to oral antibiotics and discharge her home. Her oxygen saturation remained above 94% with ambulation and symptomatically she is greatly improved.
[2017-01-29] MEDS ORDERED: Levofloxacin 750 MG/150 ML 750 MG/150 ML BAG IVPB SCH (02:00)
--- NOTE | 2017-01-29 18:04 | Electrocardiograph Report ---
[place] [id number] Test Date: 2017-01-27 Pat Name: Luci Davis Department: 104 Room: 3A25 Gender: F Data Lead: LUÍS : 1995 Requested By: Ki Moran Order Number: [id number] Reading MD: Juan Godinez MD Measurements Intervals [place] Rate: 88 P: 20 HI: 160 QRS: 70 QRSD: 74 T: 36 QT: 355 QTc: 400 Interpretive Statements SINUS RHYTHM Electronically Signed On 01-29-2017 18:03:30 EDT by Juan Godinez MD
== END 2017-01-28 11:10 | disposition home or self-care (01) ==
LOC: EMEROO 22:27 → 3ANU 22:27 → SUATTDRO 01-28 02:55 → 3ANU 01-28 03:04
PROVIDERS: ADMIT Internal Medicine; ATTEND Internal Medicine

== ENCOUNTER 2019-10-03 22:53 | Inpatient (IN) ==
[2019-10-03] MEDS ORDERED: Lidocaine 1% 20 ML MDV INFILT PRN (22:55)
[2019-10-03] MEDS ORDERED: Naloxone 0.4 MG/ML INJ IVP PRN (22:55)
[2019-10-03] MEDS ORDERED: Metoclopramide 10 MG/2 ML VIAL IVP PRN (22:55)
[2019-10-03] MEDS ORDERED: Famotidine 20 MG/2 ML VIAL IVP PRN (22:55)
[2019-10-03] MEDS ORDERED: Oxytocin 20 units/ LR 1000 mL 20 UNIT/1,000 ML BAG IVC SCH (23:00)
[2019-10-03] MEDS ORDERED: Ringers Solution, Lactated 1,000 ML ONE (23:19)
[2019-10-03] MEDS ORDERED: Ringers Solution, Lactated 1,000 ML IVC SCH (23:30)
[2019-10-03 23:37] LABS: Basophils % 0.1 %; Eosinophils % 0.3 %; Hemoglobin 9.2 g/dL (11.5-15.4); Immature Granulocytes % 0.3 % (0-4); Lymphocytes # 1.9 K/mcL (0.6-4.6); Lymphocytes % 25.3 %; Mean Corpuscular HGB Conc 31.7 g/dL (31.6-35.5); Mean Corpuscular Hemoglobin 26.6 pg (28.0-33.3); Mean Corpuscular Volume 83.8 fL (83.0-100.0); Mean Platelet Volume 10.8 fL (9.4-12.4); Monocytes # 0.7 K/mcL (0.0-1.3); Neutrophils # 4.8 K/mcL (1.6-8.9); Platelet Count 233 K/mcL (140-400); Red Blood Count 3.46 M/mcL (3.82-4.97); Red Cell Distribution Width 15.5 % (11.5-14.5); White Blood Count 7.4 K/mcL (4.3-11.1)
[2019-10-03 23:48] LABS: Amphetamine Screen,Urine Negative ng/mL (Cutoff=1000); Barbiturate Screen,Urine Negative ng/mL (Cutoff=200); Benzodiazepines Screen,Urine Negative ng/mL (Cutoff=200); Cannabinoid Screen,Urine Negative ng/mL (Cutoff = 50); Cocaine Screen,Urine Negative ng/mL (Cutoff= 300); Opiate Screen,Urine Negative ng/mL (Cutoff=300); Phencyclidine Screen,Urine Negative ng/mL (Cutoff=25)
[2019-10-04] MEDS ORDERED: Ondansetron 4 MG/2 ML VIAL IVP PRN (00:04)
[2019-10-04] MEDS ORDERED: *HR* FentaNYL (PF) 100 MCG/2 ML VIAL EP ONE (00:04)
[2019-10-04] MEDS ORDERED: EPHEDrine 50 MG/ML VIAL IVP PRN (00:04)
[2019-10-04] MEDS ORDERED: Ropivacaine/PF 0.2% 20 ML VIAL EP ONE (00:04)
[2019-10-04] MEDS ORDERED: Naloxone 0.4 MG/ML INJ IVP PRN (00:04)
[2019-10-04] MEDS ORDERED: Epidural Premix (fent/bupiv) 110 ML EP SCH (00:15)
[2019-10-04] MEDS ORDERED: *HR* FentaNYL (PF) 100 MCG/2 ML VIAL ONE (02:37)
[2019-10-04] MEDS ORDERED: Ropivacaine/PF 0.2% 20 ML VIAL ONE (02:37)
[2019-10-04] MEDS ORDERED: Oxytocin 20 units/ LR 1000 mL 20 UNIT/1,000 ML BAG IVC SCH (09:32)
[2019-10-04] MEDS ORDERED: Benzocaine/Menthol 56 GM AEROSOL SPRAY TP PRN (09:32)
[2019-10-04] MEDS ORDERED: Acetaminophen 325 MG TABLET PO PRN (09:32)
[2019-10-04] MEDS ORDERED: Lanolin 7 G OINT...G. TP PRN (09:32)
[2019-10-04] MEDS: Prenatal Vit/FA 1 EACH TABLET PO SCH (10:10)
[2019-10-04] MEDS: Ibuprofen 600 MG TABLET PO PRN (21:00)
[2019-10-05 04:35] LABS: Basophils % 0.4 %; Eosinophils # 0.1 K/mcL (0.0-0.6); Eosinophils % 0.9 %; Hematocrit 29.4 % (35.3-44.9); Hemoglobin 9.1 g/dL (11.5-15.4); Immature Granulocytes % 0.4 % (0-4); Lymphocytes # 2.6 K/mcL (0.6-4.6); Lymphocytes % 31.4 %; Mean Corpuscular Hemoglobin 26.3 pg (28.0-33.3); Mean Platelet Volume 10.9 fL (9.4-12.4); Monocytes # 0.7 K/mcL (0.0-1.3); Monocytes % 7.9 %; Neutrophils # 4.8 K/mcL (1.6-8.9); Platelet Count 189 K/mcL (140-400); Red Blood Count 3.46 M/mcL (3.82-4.97); Red Cell Distribution Width 15.5 % (11.5-14.5); White Blood Count 8.2 K/mcL (4.3-11.1)
[2019-10-05 06:13] VITALS: BP 124/67
[2019-10-05] MEDS: Ibuprofen 600 MG TABLET PO PRN (11:34)
[2019-10-05] MEDS: Prenatal Vit/FA 1 EACH TABLET PO SCH (11:35)
== END 2019-10-05 14:45 | disposition home or self-care (01) | DRG 807 ==
LOC: 1NENULAB 22:53 → 1NENUOBS 10-04 09:11
PROVIDERS: ADMIT Obstetrics & Gynecology; ATTEND Obstetrics & Gynecology